=== PATIENT | female | born 1955 | race Caucasian/White ===

== ENCOUNTER → 2017-10-10 | Outpatient (CLI) | payer OTHER ==
[~2017-10-10] VITALS: Ht 167.6 cm; Wt 63.5 kg
[~2017-10-10] MED LIST: ASPIR 8181 M1 PO; CALCIUM 500 +1 EAC5 PO; CELEXA20 MG PO; FISH OIL 1,001000 M2 PO; GLUCOSAMINE CH1 EA10 PO; MULTI VITAMIN1 EACH PO; POTASSIUM99 M1 PO
--- NOTE | ~2017-10-10 | O ---
[facility] [place] [address] OPERATIVE REPORT Name: YOSEF ARVIZU Room #: REG [facility].#: [id number] Admission: 10/10/17 Attend Phys: Mukesh Akbar Discharge: Date of : 57 Report #: [id number] THIS REPORT FOR: //name// CC: Mukesh Stark MD DATE OF SERVICE: 10/10/2017 PROCEDURE PERFORMED: Colonoscopy with biopsies. HISTORY OF PRESENT ILLNESS: The patient is a 62-year-old female with a history of colon polyps in 2011. She is here for routine followup. She denies any symptoms. No family history of colon cancer. PROCEDURE: The risks and benefits of the procedure were explained to the patient, those risks including but not limited to bleeding, perforation, the risk of sedation. She understood these risks and gave informed consent. Sedation was given using propofol per Anesthesia. Next, a digital rectal exam was initially performed, which was normal. Next, using a standard Fujinon colonoscope, the scope was placed in the patient's anus and advanced under direct vision to the cecum. The overall prep was excellent. The cecum and ileocecal valve were normal in appearance. The ascending, transverse and descending colon were normal. A 3 mm sessile polyp was noted in the sigmoid colon. This was removed with cold forceps, otherwise normal. In the rectum, a 5 mm sessile polyp also noted and removed with cold forceps. On retroflexion, no abnormalities were noted. The scope was then withdrawn and the procedure terminated. The patient tolerated the procedure well. IMPRESSION: 1. Two small colonic polyps. 2. Otherwise, normal colonoscopy. RECOMMENDATIONS: 1. Await biopsy results. 2. If polyps are hyperplastic, repeat in 10 years; if adenomatous polyp, repeat in 5 years. Thank you for allowing me to participate in her care. <ELECTRONICALLY SIGNED> By: Mukesh Valentino MD 10/13/17 [id number] Mukesh Valentino MD /nt
--- NOTE | ~2017-10-10 | S ---
[facility] [place] [address] SURGICAL PATH RPT PROCEDURE Name: JOANNA ARVIZU R Room #: REG [facility] M.R.#: [id number] Admission: 10/10/17 Date of : 57 Discharge: Report #: [id number] Path Case #: [id number] PATHOLOGY REPORT COLLECTION DATE: 10/10/2017 RECEIVED DATE: 10/10/2017 SUBMITTING PHYS: Dr. Mukesh Valentino OTHER PHYS: Dr. Soumya Stark SPECIMEN(S) RECEIVED: A.Sigmoid colon polyp B.Rectal polyp biopsy * * * * * * * * * * * * FINAL DIAGNOSIS: A ."Sigmoid colon polyp", biopsy: - Hyperplastic polyp. B. "Rectal polyp biopsy", biopsy: - Hyperplastic polyp. (CLW:trent; 10/13/2017) PATHOLOGIST: Sophia Armendariz M.D. REPORT ELECTRONICALLY SIGNED BY: Sophia Armendariz M.D. DATE/TIME: 10/13/2017 13:17 * * * * * * * * * * * * GROSS PATHOLOGY: A. Received in formalin labeled "Joanna Arvizu, sigmoid colon polyp biopsy," is a segment of hernandez soft tissue measuring 0.3 x 0.3 x 0.1 cm in maximum dimension. It is submitted entirely in cassette A1. B. Received in formalin labeled "Joanna Arvizu, rectal polyp biopsy," are 3 fragments of hernandez soft tissue measuring between 0.5 x 0.3 x 0.1 cm and 0.2 x 0.2 x 0.1 cm. They are entirely submitted in cassette B1. (SDY; 10/10/2017) CLINICAL HISTORY: History colon polyps Colon polyps INITIAL CPT CODE(S): A; 47203 B; 36032 Professional services performed by [employer] at [facility] [address] [place] [address] SURGICAL PATH RPT PROCEDURE Name: JOANNA ARVIZU Room #: REG [facility]#: [id number] Admission: 10/10/17 Date of : 57 Discharge: Report #: [id number] Path Case #: [id number] [address], [place] [address] Technical services performed by [employer] at [address] [place] [address], [address] [address]. [place] [address] PHONE: [phone] DIRECTOR: Woody Dowd M.D. * * * END OF REPORT * * *
== END | disposition home or self-care (01) ==
LOC: GI 06:51
DX: Z09 Encounter for follow-up examination after completed treatment for conditions other than malignant neoplasm (principal); Z86.010 Personal history of colon polyps; K63.5 Polyp of colon; K62.1 Rectal polyp; F32.89 Other specified depressive episodes; F41.8 Other specified anxiety disorders; F17.210 Nicotine dependence, cigarettes, uncomplicated; Z85.828 Personal history of other malignant neoplasm of skin; Z98.890 Other specified postprocedural states; Z79.82 Long term (current) use of aspirin
CPT/HCPCS: 62110